=== PATIENT | male | born 1985 | race African-American/Black ===

== ENCOUNTER 2019-02-22 09:53 | Emergency (ER) | payer SELFPAY ==
[~2019-02-22] VITALS: Ht 170.2 cm; Wt 79.4 kg
[2019-02-22] MEDS ORDERED: cloNIDine HCL 0.1 MG TAB ONE (10:10)
[2019-02-22] MEDS ORDERED: cloNIDine HCL 0.1 MG TAB PO ONE (10:15)
[2019-02-22 11:32] VITALS: BP 154/115
== END 2019-02-22 11:39 | disposition home or self-care (01) ==
LOC: ER 09:53
DX: K04.7 Periapical abscess without sinus (principal); I10 Essential (primary) hypertension; F17.210 Nicotine dependence, cigarettes, uncomplicated